=== PATIENT | female | born 1980 | race Asian ===

== ENCOUNTER → 2022-01-10 | Outpatient (CLI) | payer BC ==
--- NOTE | 2022-01-10 15:04 | KCIC ---
EXAMINATION: US PELVIS COMPLETE, 01/10/2022 8:57 AM CLINICAL INDICATION: Amenorrhea, enlarged uterus TECHNIQUE: Grayscale, color and spectral Doppler ultrasound images of the pelvis via transabdominal a pproach. COMPARISON: None. FINDINGS: The uterus measures 7.8 x 5.3 x 4.6 cm. The endometrial stripe measures 6 mm in thickness. Possible i soechoic myometrial mass in the uterus measuring 1.4 x 1.5 x 1.4 cm. The right ovary measures 2.5 x 2.5 x 1.8 cm. The left ovary measures 1.5 x 1.7 x 1.1 cm. Normal ovari an blood flow bilaterally. No adnexal mass or free fluid. IMPRESSION: 1. Possible 1.5 cm fibroid in the uterus. 2. Endometrial stripe measuring 6 mm. If the patient is premenopausal, this is within normal limits. In a postmenopausal patient, this is slightly thickened. Electronically signed by: Debby Gray MD (01/10/2022 3:02 PM) [id number]
== END ==
LOC: KCIC US 08:48
PROVIDERS: ATTEND Family Medicine
DX: N85.8 Other specified noninflammatory disorders of uterus (principal); N91.2 Amenorrhea, unspecified; N85.2 Hypertrophy of uterus
CPT/HCPCS: 76856